=== PATIENT | male | born 1960 | race African-American/Black ===

== ENCOUNTER 2020-05-01 14:24 | Inpatient (IN) | payer OTHER ==
[~2020-05-01] VITALS: Ht 180.3 cm; Wt 112.1 kg
[2020-05-01] MEDS: LABETALOL 5MG/ML SYR 20 MG/4 ML SYRINGE IV ONE (15:00)
[2020-05-01 15:09] LABS: BASOPHILS % 0.6 % (0.0-2.0); HEMATOCRIT. 43.9 % (42.0-52.0); HEMOGLOBIN. 14.4 g/dL (14.0-18.0); LYMPHOCYTES % 21.8 % (20.0-50.0); MEAN CORPUSCULAR VOLUME 73.1 fL (80.0-94.0); MEAN PLATELET VOLUME 8.6 fl (7.4-10.4); MONOCYTES % 6.7 % (2.0-8.0); NEUTROPHILS % 68.9 % (40.0-76.0); PLATELET 225 x1000/uL (130-400); RED BLOOD CELL COUNT 6.01 mill/uL (4.7-6.1); RED CELL DISTRIBUTION WIDTH 14.4 % (11.6-14.6)
[2020-05-01 15:11] LABS: CHLORIDE 103 mEq/L (98-107)
[2020-05-01] MEDS ORDERED: ALTEPLASE IV STA (15:12)
[2020-05-01 15:15] LABS: ETHANOL BLOOD < 10 mg/dL
[2020-05-01 15:18] LABS: LDL CHOLESTEROL 100 mg/dL (5-100)
[2020-05-01 15:20] LABS: PROTHROMBIN TIME 10.3 sec (9.6-11.0)
[2020-05-01] MEDS: ALTEPLASE 100MG/VIAL IV NR (15:29)
[2020-05-01] MEDS ORDERED: *NO ASPIRIN X 24 HOURS XX SCH (15:29)
[2020-05-01] MEDS: ALTEPLASE 81 MG in BAG 1 EACH IV NR (15:30)
[2020-05-01] MEDS: ALTEPLASE 100MG/VIAL IV STA (17:09)
[2020-05-01 18:29] LABS: CLARITY URINE CLEAR (CLEAR); COLOR URINE YELLOW (YELLOW); KETONES URINE NEGATIVE (NEGATIVE); LEUKOCYTE ESTERASE URINE NEGATIVE (NEGATIVE); NITRITE URINE NEGATIVE (NEGATIVE); OCCULT BLOOD URINE NEGATIVE (NEGATIVE); PROTEIN URINE NEGATIVE (NEGATIVE); SPECIFIC GRAVITY URINE 1.022 (1.005-1.030); UROBILINOGEN URINE 0.2 E.U./dL (0.2-1.0)
[2020-05-01 18:48] LABS: *AMPHETAMINES SCREEN URINE NEGATIVE (NEGATIVE); *BARBITURATES SCREEN URINE NEGATIVE (NEGATIVE); *COCAINE SCREEN URINE NEGATIVE (NEGATIVE)
[2020-05-01 18:49] LABS: *BENZODIAZEPINES SCREEN URINE NEGATIVE (NEGATIVE); CANNABINOID URINE SCREEN NEGATIVE (NEGATIVE); OPIATES URINE SCREEN NEGATIVE (NEGATIVE); PHENCYCLIDINE URINE SCREEN NEGATIVE (NEGATIVE)
[2020-05-01 18:51] LABS: METHADONE URINE SCREEN NEGATIVE (NEGATIVE)
[2020-05-02] MEDS ORDERED: IPRATROPIUM/ALBUTEROL 0.5-3(2.5)MG/3ML NEB HHN PRN (11:15)
[2020-05-02] MEDS ORDERED: ACETAMINOPHEN 325MG TABLET PO PRN (11:15)
[2020-05-02] MEDS ORDERED: HYDROCODONE/ACETAMINOPHEN 5/325MG TABLET PO PRN (11:15)
[2020-05-02] MEDS ORDERED: ONDANSETRON HCL 4MG/2ML INJ IV PRN (11:15)
[2020-05-02 12:24] VITALS: BP 139/94
[2020-05-02 12:51] VITALS: BP 136/94
[2020-05-02 14:00] VITALS: BP 134/97
[2020-05-02 16:00] VITALS: BP 131/86
[2020-05-02] MEDS ORDERED: DEXTROSE 50% WATER 50ML SYRINGE IV PRN (17:45)
[2020-05-02] MEDS: BLOOD SUGAR DIAGNOSTIC STRIP TEST SCH (17:56)
[2020-05-02] MEDS: INSULIN LISPRO 100 UNITS/ML SUBCUT SCH (18:12)
[2020-05-02 19:38] VITALS: BP 145/103
[2020-05-02 19:41] VITALS: BP 145/103
[2020-05-02] MEDS ORDERED: ATORVASTATIN CALCIUM 40MG TABLET PO SCH (21:00)
[2020-05-03] MEDS ORDERED: ASPIRIN 325MG EC TABLET PO SCH (09:00)
== END 2020-05-02 20:30 | disposition short-term general hospital (02) | DRG 63 ==
LOC: ER 14:44 → EDBEDREQSVC 17:42 → MICUSO 17:46 → EDBEDREQ 17:53 → EDBEDREQTM 17:53 → EDBEDREQ 19:38 → 5EST 05-02 10:05 → 7WST 05-02 13:50
PROVIDERS: ADMIT Internal Medicine; ATTEND Internal Medicine
DX: I63.9 Cerebral infarction, unspecified (principal); R47.01 Aphasia; I10 Essential (primary) hypertension; E11.9 Type 2 diabetes mellitus without complications; Z03.818 Encounter for observation for suspected exposure to other biological agents ruled out
CPT/HCPCS: 36415; 70496; 70498; 71045; 80053; 80061; 80305; 80320; 81003; 82962; 83036; 83721; 84484; 85025; 93005; 99291; J1815; J2997; G0480; U0003-CS